=== PATIENT | female | born 1955 | race Caucasian/White ===

== ENCOUNTER 2016-12-28 06:44 | Emergency (ER) | payer OTHER ==
[~2016-12-28] VITALS: Ht 172.7 cm; Wt 72.7 kg
--- NOTE | 2016-12-28 06:50 | ED.REPORT ---
HPI-General Illness Date of Service Dec 28, 2016 ED Provider: Markos Hoff MD Pt is an otherwise healthy 61 y/o female who presents to the ED c/o of lower right back pain that radiates down the front of her R leg onset 5 days ago. She states she was lifting heavy items prior to the onset of her pain, but denies a mechanism of injury or trauma. She describes her symptoms as a constant, "sharp " pain and rates severity 8-9/10 and is not exacerbated by movement. She denies incontinence, urinary retention, numbness/tingling, focal weakness, fever, chills, abdominal pain, chest pain, SOB, constipation, diarrhea, hematuria, hematochezia, nausea, vomiting, neck pain, or any other symptoms. Pt went to the doctor 2 days ago and received Vicodin which relieved symptoms temporarily. She denies a history of cancer, IVDA, or osteoporosis. Nursing Notes Stated Complaint: BACK PAIN Nursing Notes Reviewed: Yes General Time Seen by MD: 06:50 Chief Complaint Back pain Hx Obtained From: Patient Arrived By: Walk-in Sudden in Onset?: Yes Onset Occurred: 5 days ago Symptom Duration: Constant Location: : Back Quality: Painful, Sharp Radiation: : Leg right Severity: Current: Pain level 8 out of 10 Severity: Maximum: Pain level 9 out of 10 Pertinent Negative: Pt denies other symptoms Relieved by: Prescription meds Pertinent Negative: Exacerbated by nothing Recent Healthcare: Recent doctor visit Similar Sx Previous: Yes Past Medical History Past Medical History Denies Past Surgical History Reports: , Cholecystectomy Smoking History Never Smoker Social History Alcohol Use: Denies alcohol use Drug Use: Denies drug use Other Social History: Good social support Ambulatory Status Independent Review of Systems No urinary retention, tingling Full Review of Systems Constitutional: Denies: Chills, Fever, Weakness - generalized Respiratory: Denies: Shortness of breath Cardiovascular: Denies: Chest pain GI: Denies: Abdominal pain, Constipation, Diarrhea, Hematochezia, Nausea, Vomiting Female: Denies: Hematuria, Incontinence Musculoskeletal: Reports: Back pain, Extremity pain, Denies: Neck pain Neurologic: Denies: Focal weakness, Numbness, Weakness Complete sys rev & neg: except as marked. Physical Exam Nursing note and vitals reviewed. Constitutional: Well-developed, well-nourished. Not diaphoretic. Head: Normocephalic and atraumatic. Mouth/Throat: Oropharynx is clear and moist. No oropharyngeal exudate. Eyes: EOM are normal. Pupils are equal, round, and reactive to light. Neck: Supple, no tracheal deviation. Cardiovascular: Normal rate, regular rhythm. Equal and intact distal pulses throughout. Pulmonary/Chest: Effort normal and breath sounds normal. No respiratory distress. Abdominal: Soft. No distension. There is no tenderness, rebound, or guarding. Bowel sounds present. Musculoskeletal: Range of motion grossly intact, moving all extremities. No edema appreciated. Mild sacral-ilial tenderness to palpation. No cervical, thoracic, or lumbar spine tenderness to palpation. Neurological: AOx3. Grossly nonfocal exam. Strength and sensation intact and equal to bilateral upper and lower extremities. Skin: Warm and dry, no rashes or pallor appreciated. Psychiatric: Appropriate mood and affect. Behavior appears normal. Vital Signs Vital Signs Date Time Temp Pulse Resp B/P Pulse Ox O2 Delivery O2 Flow Rate FiO2 12/28/16 06:56 65 18 137/81 Re-Eval/Medical Decision Med Decision/Clinical Course In summary, 61-year-old female presenting to the ED for evaluation of back pain. DDx broad and includes lumbosacral strain, degenerative disc disease, cauda equina syndrome, epidural abscess, AAA, nephrolithiasis. No bowel/bladder incontinence or urinary retention, no saddle anesthesia, unremarkable exam with equal strength to bilateral lower extremities and grossly intact sensation to light touch. Afebrile, non-toxic appearing, no history of IV drug abuse. Patient denies abdominal pain and has a benign abdominal exam. No CVA tenderness or hematuria. No direct trauma, no known history of osteoporosis. No midline tenderness to palpation. Current presentation seems most consistent with an acute exacerbation vs lumbosacral strain. Patient given 30 mg of Toradol IM and Decadron here in the ED with some improvement in symptoms. Given above, reasonable to discharge home w/ PCP f/u as soon as able to further discuss strategies to minimize pain and discomfort. Very careful return precautions were discussed, including to return immediately if any bowel or bladder incontinence, urinary retention, fever, or weakness. Patient agreeable to the plan as stated, no further questions. Source of Hx: Old records Time of Eval: 06:50 Patient Status: Condition improved Re-Evaluation/Progress Note: Discussed plan for discharge. Patient understands and agrees with plan. F/U instructions and RTER warnings given. All questions addressed at this time. Counseled Regarding: Diagnosis, Lab results, Need for follow-up, When/why to return to ED Discharge & Departure Primary Impression: Acute low back pain Back pain laterality: right Sciatica presence: unspecified whether sciatica present Qualified Code: M54.5 - Low back pain Disposition: Home Discharge Condition All VS Reviewed: Yes Condition: Stable Patient Instructions: Acute Low Back Pain (ED) Additional Instructions: Thank you for allowing us to be a part of your care in the ED today. Your examination today is reassuring. I do not think that there is an emergent cause for your symptoms today that would require admission to the hospital; however, please schedule a follow up appointment with your primary care physician tomorrow for a recheck. Please return to the emergency department for any bowel or bladder incontinence , urinary retention, abdominal pain, shortness of breath, chest pain, one sided weakness/numbness, fevers, or chills, or if there's anything else of concern to you. Referrals: Jyothi Ellis MD (Family) Scribe Attestation Portions of this note were transcribed by Lynn Dowd and Echo Orosco. I, Dr. Hoff, personally performed the history, physical exam and medical decision-making; I reviewed and confirmed the accuracy of the information in the transcribed note. Signed by Lynn Alonso, 12/28/16. copies to: Jyothi Ellis MD, William B MD Dec 28, 2016 06:50 Lynn Dowd Dec 28, 2016 07:45 ECHO OROSCO Dec 28, 2016 08:09 ECHO OROSCO Dec 28, 2016 08:09
[2016-12-28 06:56] VITALS: BP 137/81; PULSE 65; RESP 18
[2016-12-28] MEDS ORDERED: Dexamethasone 10 mg/mL Inj IM ONE (07:50)
== END 2016-12-28 08:30 | disposition home or self-care (01) ==
LOC: SED 06:44
DX: M54.5 Low back pain (principal); X50.0XXA Overexertion from strenuous movement or load, initial encounter; Y93.89 Activity, other specified; Y92.9 Unspecified place or not applicable; Y99.8 Other external cause status
CPT/HCPCS: 96372; 99284; J1100; J1885

== ENCOUNTER 2016-12-30 01:36 | Emergency (ER) | payer OTHER ==
[~2016-12-30] VITALS: Ht 172.7 cm; Wt 70.5 kg
[2016-12-30 01:40] VITALS: BP 130/82; PULSE 71; RESP 16; O2SAT 95
--- NOTE | 2016-12-30 01:53 | ED.REPORT ---
HPI-General Illness Date of Service Dec 30, 2016 ED Provider: Jerry Bhatia MD The pt is a 61 y/o female presenting to the ED complaining of lower R back pain onset 7 days ago. The pain is described as shooting, radiates to the front of her thigh, and began while she was moving something heavy. She was seen here in the ED 2 days ago for the same symptoms. Denies incontinence, numbness, or tingling. The pt has taken Ibuprofen w/o relief. Nursing Notes Stated Complaint: PAIN IN RIGHT LOWER BACK AND RIGHT LEG Chief Complaint: R lower back pain Nursing Notes Reviewed: Yes Allergies: Coded Allergies: No Known Allergies (Unverified , 12/30/16) Scheduled Prednisone (PredniSONE) 20 Mg Tablet 20 MG PO DAILY General Time Seen by MD: 01:52 Chief Complaint Back pain (R lower ) Hx Obtained From: Patient Arrived By: Walk-in Sudden in Onset?: Yes Onset Occurred: 1 week ago Symptom Duration: Since onset Recent Healthcare: No recent hospitalization, Recent doctor visit Similar Sx Previous: Yes Past Medical History Past Medical History Denies Past Surgical History Reports: , Cholecystectomy Smoking History Never Smoker Social History Alcohol Use: Denies alcohol use Drug Use: Denies drug use Other Social History: Good social support Ambulatory Status Independent Review of Systems Denies tingling Full Review of Systems Female: Denies: Incontinence Musculoskeletal: Reports: Back pain (R lower ), Extremity pain (R thigh ) Neurologic: Denies: Numbness Complete sys rev & neg: except as marked. Physical Exam Vital Signs Vital Signs Date Time Temp Pulse Resp B/P Pulse Ox O2 Delivery O2 Flow Rate FiO2 12/30/16 02:28 36.4 71 16 130/82 95 Room Air 12/30/16 01:40 36.4 71 16 130/82 95 Room Air Initial VS: Reviewed, Vital signs normal General/Constitutional: Well-developed, Well-nourished Head / Eyes: Atraumatic, Normocephalic, PERRL ENT: Mucous membranes moist, Conjunctiva normal, No scleral icterus Neck: Supple, Non-tender, Full range of motion Respiratory: Breath sounds normal, Clear to auscultation, No respiratory distress Cardiovascular: Regular rate & rhythm, Heart sounds normal, Intact distal pulses Skin: Warm, Dry, No cyanosis Psychiatric: Mood/affect normal, Behavior normal, Normal thought content Lower Extremity / Pelvis / MS: No deformity, Neurologic intact, Vascular intact Negative straight leg test Deep tendon reflexes normal and symmetric R sided sciatic notch tenderness Hip is supple and non-tender Distal neurovascular intact Neurologic: Oriented X3, Speech NL Re-Eval/Medical Decision Med Decision/Clinical Course Right sided sciatica without significant improvement. No evidence of urinary or fecal incontinence. She will need further evaluation by her primary doctor, possibly to include an MRI. In the meantime we will give her a course of prednisone. Counseled Regarding: Diagnosis, Lab results, Need for follow-up, When/why to return to ED Discharge & Departure Primary Impression: Right sided sciatica Disposition: Home Discharge Condition All VS Reviewed: Yes Condition: Stable Patient Instructions: Sciatica (ED) Additional Instructions: Your pain is likely due to a herniated disc pinching your sciatic nerve. Prednisone 20 mg by mouth 3 times a day, #15 prescribed. Follow up with your primary doctor for further evaluation to include an MRI if he has persistent problems. Referrals: Ioana Anne MD (PCP) Jyothi Ellis MD (Family) Scribe Attestation Portions of this note were transcribed by Иван Hassan. I, Dr. Bhatia personally performed the history, physical exam and medical decision-making; I reviewed and confirmed the accuracy of the information in the transcribed note. copies to: Jyothi Ellis MD; Ioana Anne MD, Howard L MD Dec 30, 2016 01:53 Иван Hassan Dec 30, 2016 02:25
[2016-12-30] MEDS ORDERED: predniSONE 20 mg Tablet PO ONE (02:05)
[2016-12-30] MEDS ORDERED: HYDROmorphone 1 mg/mL Inj IM ONE (02:05)
[2016-12-30] MEDS ORDERED: PRE20 PO (02:08)
[2016-12-30 02:28] VITALS: BP 130/82; PULSE 71; RESP 16; O2SAT 95
== END 2016-12-30 02:29 | disposition home or self-care (01) ==
LOC: SED 01:36
DX: M54.31 Sciatica, right side (principal); X50.0XXA Overexertion from strenuous movement or load, initial encounter; Y93.89 Activity, other specified; Y92.89 Other specified places as the place of occurrence of the external cause; Y99.8 Other external cause status; Z90.49 Acquired absence of other specified parts of digestive tract
CPT/HCPCS: 96372; 99283; J1170

== ENCOUNTER 2017-01-01 02:41 | Emergency (ER) | payer OTHER ==
[~2017-01-01] VITALS: Ht 172.7 cm; Wt 72.7 kg
[~2017-01-01 02:41] MED LIST: PRE20 PO
[2017-01-01 02:48] VITALS: BP 145/86; PULSE 64; RESP 14; O2SAT 96
--- NOTE | 2017-01-01 03:21 | ED.REPORT ---
HPI-Back Pain 40 and Over Date of Service Jan 01, 2017 ED Provider: Doc,Ed MD Patient is an otherwise healthy 61 year old female who presents to the ED complaining of lower right back pain that radiates down the front of her right leg onset 9 days ago. She states she was lifting heavy items prior to the onset of her pain, but denies a mechanism of injury or trauma. She describes her symptoms as a constant, "sharp" pain and rates severity 8-9/10 and is not exacerbated by movement. The patient reports that laying down also exacerbates the pain. She denies incontinence, urinary retention, numbness/tingling, fever, chills, constipation, diarrhea, hematuria, hematochezia, nausea, vomiting or neck pain. Patient was started on Prednisone at her last visit. She states that she has been the taking pain medication she was prescribed without relief. Nursing Notes Stated Complaint: BACK PAIN Chief Complaint: Back Pain or Injury Nursing Notes Reviewed: Yes Allergies: Coded Allergies: No Known Allergies (Unverified , 12/30/16) Scheduled Prednisone (PredniSONE) 20 Mg Tablet 20 MG PO DAILY General Time Seen by MD: 03:20 Chief Complaint Back pain Hx Obtained From: Patient Sudden in Onset?: Yes Onset Occurred: More than a week ago... (9 days) Symptom Duration: Since onset Caused by: Spontaneous/no mechanism Location: : Generalized Quality: Painful Severity: Current: Moderate Recent Healthcare: Recent doctor visit Similar Sx Previous: Yes Past Medical History Past Medical History Denies Past Surgical History Reports: , Cholecystectomy Smoking History Never Smoker Social History Alcohol Use: Denies alcohol use Drug Use: Denies drug use Other Social History: Good social support Ambulatory Status Independent Review of Systems Constitutional: Denies: Chills, Fever Respiratory: Denies: Non-productive cough, Shortness of breath GI: Denies: Hematochezia, Nausea, Vomiting Female: Denies: Dysuria, Hematuria, Incontinence, Urinary urgency Musculoskeletal: Reports: Back pain, Denies: Neck pain Neurologic: Denies: Bladder dysfunction, Bowel dysfunction, Numbness, Weakness Complete sys rev & neg: except as marked. Skin: Denies Itching, Denies Rash Physical Exam Initial Vital Signs Vital Signs (First) Date Time Temp Pulse Resp B/P Pulse Ox O2 Delivery O2 Flow Rate FiO2 01/01/17 02:48 35.2 64 14 145/86 96 Room Air Initial VS: Reviewed, Vital signs normal General/Constitutional: Awake, Alert Respiratory / Chest: Atraumatic, Breath sounds NL, Breath sounds = bilat, No respiratory distress Cardiovascular: Heart rate NL, Regular rhythm, Heart sounds NL Abdomen: Atraumatic, Soft, Non-tender Flank / Spine / Paraspinal: Positive: Sacral spine tender... Neurologic: Oriented X3, Speech NL, No motor deficits, No sensory deficits, Gait NL normal sensation Lower Extremity / Pelvis / MS: Atraumatic, Full range of motion strength 5/5 Skin: Atraumatic, Color NL, No rash, Warm, Dry Head / Eyes: Atraumatic, Normocephalic, PERRL, EOMI Psychiatric: Affect NL, Mood NL Re-Eval/Medical Decision Med Decision/Clinical Course 61-year-old female with right sciatica for the past 10 days, gradually worsening. She has been on steroids and oral opiate pain medication without relief. There is no significant weakness or numbness or other overt dysfunction. RI is ordered for this morning. Her care is turned over change of shift to Dr. Andersen. Re-Evaluation/Progress : Time of Eval: 05:42 Re-Evaluation/Progress Note: Discussed plan for MRI in morning. Patient understansd and agrees to plan. All questions were addressed. Counseled Regarding: Diagnosis Discharge & Departure Shift Change Sign-Out Patient Care Transferred: Yes Discussed Complaint(s): Yes Impression: Primary Impression: Acute low back pain Back pain laterality: midline Sciatica presence: with sciatica Sciatica laterality: sciatica of right side Qualified Code: M54.41 - Lumbago with sciatica, right side Discharge Condition All VS Reviewed: Yes Condition: Stable Referrals: Ioana Anne MD (PCP) Care Transferred to: Dr. Andersen Care Transferred at: 06:00 Gavin Attestation Portions of this note were transcribed by Dana Kelley. I, Dr. Bhatia personally performed the history, physical exam and medical decision-making; I reviewed and confirmed the accuracy of the information in the transcribed note. Signed by: Gavin Barron, 01/01/17 copies to: Ioana Anne MD, Howard L MD Jan 01, 2017 03:21 Kerri Kelley Jan 01, 2017 03:54
[2017-01-01] MEDS ORDERED: HYDROmorphone 1 mg/mL Inj IM ONE ×3 (03:55→10:50)
[2017-01-01 06:24] VITALS: BP 136/82; PULSE 62; RESP 16; O2SAT 98
--- NOTE | 2017-01-01 09:54 | DRSVH ---
PROCEDURE: MRI LUMBAR SPINE WITHOUT CONTRAST ([id number]) INDICATIONS: increasing rt sciatica TECHNIQUE: Noncontrast sagittal T1 spin echo and T2 fast echo, sagittal STIR, axial T1 and T2 fast spin echo thr ough the lumbar spine. In cases with scoliosis, additional coronal T2 fast spin echo may be performe d. COMPARISON: None. FINDINGS: Image quality: Excellent. Alignment and Curvature: There is normal bony alignment. Bone Marrow: Marrow is of normal overall signal. No acute vertebral body compression fractures. Spinal Cord: Conus medullaris terminates at the L1-L2 level. Visualized cord demonstrates normal si gnal and size. Paraspinous Soft Tissues: No paravertebral masses. L1-L2: Normal appearance. L2-L3: Mild of disc height and disc desiccation. There is broad posterior disc bulge. Severe bilater al facet arthropathy and hypertrophy of ligamentum flavum. The central canal is moderately narrowed. Mild bilateral foraminal stenosis. L3-L4: Mild of disc height and disc desiccation. There is broad posterior disc bulge. Severe bilate ral facet arthropathy and hypertrophy of ligamentum flavum. The central canal is mildly narrowed. Mil d bilateral foraminal stenosis. L4-L5: Mild of disc height and disc desiccation. There is broad posterior disc bulge prominent post erior lateral disc protrusion. Mild bilateral facet arthropathy and hypertrophy of ligamentum flavum. The central canal is patent. Moderate bilateral foraminal stenosis. L5-S1: Mild of disc height and disc desiccation. There is broad posterior disc bulge and disc osteo phyte complex. Mild bilateral facet arthropathy. The central canal is patent. Moderate left foraminal stenosis. No right foraminal stenosis. There are perineural cysts (Tarlov cysts) at S1 bilaterally a nd at S2 on the right. IMPRESSION: 1. Multilevel degenerative disc disease and facet arthropathy as described. 2. Moderate central canal stenosis at L2-L3, and mild central canal stenosis at L3-L4. 3. Multilevel foraminal stenosis as described, moderate at L4-L5 bilaterally. 4. 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 Dictated by: Sundeep Gallagher M.D. on 01/01/2017 at 9:47 Transcribed by: CAIT on 01/01/2017 at 9:54 Approved by: Sundeep Gallagher M.D. on 01/01/2017 at 11:18
[2017-01-01] MEDS ORDERED: oxyCODONE-Acetamin 5-325 mg Tablet PO ONE (10:10)
[2017-01-01] MEDS ORDERED: GABA-502 PO (11:36)
[2017-01-01] MEDS ORDERED: OXYC1TAB24 PO (11:36)
[2017-01-01] MEDS ORDERED: CYCL5TAB PO (11:36)
[2017-01-01 11:45] VITALS: BP 132/83; PULSE 71; RESP 18; O2SAT 98
== END 2017-01-01 11:51 | disposition home or self-care (01) ==
LOC: SED 02:41
DX: M54.41 Lumbago with sciatica, right side (principal); X50.0XXA Overexertion from strenuous movement or load, initial encounter; Y93.89 Activity, other specified; Y99.8 Other external cause status; Y92.9 Unspecified place or not applicable; Z90.49 Acquired absence of other specified parts of digestive tract
CPT/HCPCS: 72148; J1170